=== PATIENT | male | born 1985 | race Hispanic/Latino ===

== ENCOUNTER 2021-12-22 15:27 | Emergency (ER) | payer OTHER ==
[~2021-12-22] VITALS: Ht 180.3 cm; Wt 77.1 kg
[2021-12-22] MEDS ORDERED: BACI30OI6 TP (17:50)
[2021-12-22] MEDS ORDERED: AMOX1TAB16 PO (17:50)
[2021-12-22] MEDS ORDERED: BACITRACIN 1 EACH PACKET TP ONE (18:00)
[2021-12-22] MEDS ORDERED: AMOX/CLAV 875/125MG TAB PO ONE (18:00)
[2021-12-22] MEDS ORDERED: BACITRACIN 3.5 GM TUBE OU ONE (18:00)
[2021-12-22 18:17] VITALS: BP 128/68
== END 2021-12-22 18:20 | disposition home or self-care (01) ==
LOC: EDH 15:27
DX: S91.312A Laceration without foreign body, left foot, initial encounter (principal); X58.XXXA Exposure to other specified factors, initial encounter; Y93.89 Activity, other specified; Y92.89 Other specified places as the place of occurrence of the external cause; Y99.8 Other external cause status
CPT/HCPCS: 12002; 73620

== ENCOUNTER 2022-01-02 12:34 | Emergency (ER) | payer OTHER ==
[~2022-01-02] VITALS: Ht 180.3 cm; Wt 72.6 kg
[~2022-01-02 12:34] MED LIST: AMOX1TAB16 PO; BACI30OI6 TP
[2022-01-02 12:41] VITALS: BP 114/71
== END 2022-01-02 13:30 | disposition home or self-care (01) ==
LOC: EDH 12:34
DX: S91.311D Laceration without foreign body, right foot, subsequent encounter (principal); X58.XXXD Exposure to other specified factors, subsequent encounter
CPT/HCPCS: 99281